=== PATIENT | male | born 1950 | race African-American/Black ===

== ENCOUNTER 2025-01-24 15:00 | Emergency (ER) | payer MEDICARE, BC ==
[~2025-01-24] VITALS: Ht 182.9 cm; Wt 78.0 kg
[2025-01-24 15:07] VITALS: TEMP 36.9; O2SAT 98
[2025-01-24 15:09] VITALS: O2SAT 97
[2025-01-24 15:29] LABS: BASOPHILS % 0.6 % (0.0-2.0); EOSINOPHILS % 0.7 % (0.0-5.0); HEMATOCRIT. 44.8 % (42.0-52.0); HEMOGLOBIN. 14.9 g/dL (14.0-18.0); LYMPHOCYTES % 30.1 % (20.0-50.0); MEAN PLATELET VOLUME 8.2 fl (7.4-10.4); MONOCYTES % 10.1 % (2.0-8.0); NEUTROPHILS % 58.5 % (40.0-76.0); PLATELET 148 x1000/uL (130-400); RED BLOOD CELL COUNT 5.06 mill/uL (4.7-6.1); RED CELL DISTRIBUTION WIDTH 13.9 % (11.6-14.6)
[2025-01-24 15:50] LABS: CREATININE 1.1 mg/dL (0.6-1.3); UREA NITROGEN BLOOD 13 mg/dL (9-23)
[2025-01-24] MEDS ORDERED: ONDANSETRON HCL 4MG/2ML INJ IV PRN (18:15)
[2025-01-24] MEDS: FENTANYL CITRATE/PF 50MCG/ML 2ML VIAL IV PRN (18:49)
[2025-01-24] MEDS: OXYBUTYNIN CHLORIDE 5MG TABLET PO NR (18:56)
[2025-01-24 19:26] VITALS: BP 128/80; PULSE 76; RESP 17
[2025-01-24] MEDS: HYDROCODONE/ACETAMINOPHEN 5/325MG TABLET PO PRN (19:26)
== END 2025-01-24 17:57 | disposition admitted as inpatient to this hospital (09) ==
LOC: ER 15:00
DX: N35.919 Unspecified urethral stricture, male, unspecified site (principal); T19.1XXA Foreign body in bladder, initial encounter; Z85.51 Personal history of malignant neoplasm of bladder; W44.9XXA Unspecified foreign body entering into or through a natural orifice, initial encounter; Y93.89 Activity, other specified; Y92.89 Other specified places as the place of occurrence of the external cause; Y99.8 Other external cause status
CPT/HCPCS: 52276; 93005; 96374; 80048; 85025; 86850; 86900; 86901; 36415; 88300; 99285; J3010

== ENCOUNTER 2025-01-26 01:40 | Emergency (ER) | payer MEDICARE, BC ==
[~2025-01-26] VITALS: Ht 182.9 cm; Wt 78.0 kg
[2025-01-26 01:55] VITALS: O2SAT 97
[2025-01-26 03:17] LABS: BASOPHILS % 0.3 % (0.0-2.0); EOSINOPHILS % 0.9 % (0.0-5.0); HEMATOCRIT. 44.5 % (42.0-52.0); HEMOGLOBIN. 14.6 g/dL (14.0-18.0); LYMPHOCYTES % 17.8 % (20.0-50.0); MEAN PLATELET VOLUME 8.6 fl (7.4-10.4); MONOCYTES % 13.9 % (2.0-8.0); NEUTROPHILS % 67.1 % (40.0-76.0); PLATELET 123 x1000/uL (130-400); RED BLOOD CELL COUNT 5.03 mill/uL (4.7-6.1); RED CELL DISTRIBUTION WIDTH 14.1 % (11.6-14.6)
[2025-01-26 03:25] LABS: CREATININE 1.3 mg/dL (0.6-1.3); UREA NITROGEN BLOOD 16 mg/dL (9-23)
[2025-01-26 04:30] LABS: CLARITY URINE CLOUDY (CLEAR); COLOR URINE YELLOW (YELLOW); GLUCOSE URINE NEGATIVE (NEGATIVE); KETONES URINE NEGATIVE (NEGATIVE); LEUKOCYTE ESTERASE URINE 1+ (NEGATIVE); NITRITE URINE NEGATIVE (NEGATIVE); OCCULT BLOOD URINE 3+ (NEGATIVE); PH URINE 5.5 (4.5-8.0); PROTEIN URINE 2+ (NEGATIVE); SPECIFIC GRAVITY URINE 1.018 (1.005-1.030); UROBILINOGEN URINE 0.2 E.U./dL (0.2-1.0)
[2025-01-26 04:48] LABS: BACTERIA URINE TRACE; RBC URINE 50-100 /hpf (0-2); SQUAMOUS EPITHELIAL CELL URINE FEW /lpf (RARE/1+); WBC URINE 0-2 /hpf (0-2)
[2025-01-26 04:58] VITALS: BP 115/72; PULSE 81; RESP 19; TEMP 36.9; O2SAT 98
== END 2025-01-26 05:08 | disposition home or self-care (01) ==
LOC: ER 01:40
DX: N44.2 Benign cyst of testis (principal)
CPT/HCPCS: 36415; 76870; 80048; 81003; 85025; 93976; 99284